=== PATIENT | male | born 1940 | race Caucasian/White ===

== ENCOUNTER 2021-03-28 15:13 | Outpatient (CLI) | payer MEDICARE | END 2021-03-28 15:14 | disposition home or self-care (01) | LOC: BICCT 15:13 | PROVIDERS: ATTEND Student in an Organized Health Care Education/Training Program | DX: B49 Unspecified mycosis (principal); H70.92 Unspecified mastoiditis, left ear; H74.8X3 Other specified disorders of middle ear and mastoid, bilateral; H61.93 Disorder of external ear, unspecified, bilateral | CPT/HCPCS: 70480 ==

== ENCOUNTER 2021-09-02 15:37 | Outpatient (CLI) | payer MEDICARE ==
[~2021-09-02 15:37] MED LIST: Magnevist 469MG/ML 20 ML VIAL ONE
== END 2021-09-02 15:38 | disposition home or self-care (01) ==
LOC: BICMRI 15:37
PROVIDERS: ATTEND Otolaryngology
DX: H60.313 Diffuse otitis externa, bilateral (principal); H66.12 Chronic tubotympanic suppurative otitis media, left ear; R42 Dizziness and giddiness; Q16.5 Congenital malformation of inner ear; I67.82 Cerebral ischemia; H74.8X3 Other specified disorders of middle ear and mastoid, bilateral; H70.90 Unspecified mastoiditis, unspecified ear; H66.90 Otitis media, unspecified, unspecified ear
CPT/HCPCS: 70553; 82565; A9579

== ENCOUNTER 2023-07-08 15:26 | Inpatient (IN) | payer MEDICARE ==
[~2023-07-08 15:26] MED LIST changes: +Iopamidol-370 76% 500 ML MDV (1 ML CHARGE) ONE; -Magnevist 469MG/ML 20 ML VIAL ONE
[2023-07-08] MEDS ORDERED: Metoprolol Tartrate 5 MG/5 ML VIAL ONE (15:54)
[2023-07-08 16:16] LABS: #Eosinphils 0.1 thou/uL (0.0-0.7); #Monocytes 0.5 thou/uL (0.11-0.59); %Basophils 0.4 % (0.0-1.0); %Eosinophils 1.8 % (0.0-10.0); %Lymphocytes 26.2 % (21.0-51.0); %Monocytes 5.9 % (0.0-10.0); %Neutrophils 65.4 % (42.0-75.0); Hematocrit 38.2 % (42.0-52.0); Hemoglobin 12.6 g/dL (14.0-18.0); Mean Corpuscular Hemoglobin 31.2 pg (27.0-31.0); Mean Corpuscular Volume 94.6 fl (78.0-98.0); Mean Platelet Volume 11.5 fL (7.4-10.4); Platelet Count 173 10x3/uL (130-400); RBC Distribution Width 12.7 % (11.5-14.5); Red Blood Cell (RBC) Count 4.04 mill/uL (4.70-6.10); White Blood Cell (WBC) Count 7.6 10x3/uL (4.8-10.8)
[2023-07-08 16:52] LABS: Troponin I Less than 0.010 ng/mL (< 0.028)
[2023-07-08 17:47] LABS: ALT (SGPT) 25 U/L (8-55); AST (SGOT) 17 U/L (5-34); Albumin 3.9 g/dL (3.4-4.8); Alkaline Phosphatase 84 U/L (40-110); Anion Gap 10 mmol/L (10-20); BUN (Urea Nitrogen) 35 mg/dL (8.4-25.7); Bilirubin, Total 0.4 mg/dL (0.2-1.2); Calc. Creatinine Clearance 0 mL/min (70-130); Calcium 9.4 mg/dL (7.8-10.44); Carbon Dioxide 27 mmol/L (23-31); Chloride 106 mmol/L (98-107); Estimated GFR 37; Glucose 290 mg/dL (83-110); Potassium 4.3 mmol/L (3.5-5.1); Protein, Total 6.9 g/dL (5.8-8.1); Sodium 139 mmol/L (136-145)
[2023-07-08 18:01] LABS: Magnesium 1.8 mg/dL (1.6-2.6)
[2023-07-08] MEDS ORDERED: Ondansetron PF 4 MG/2 ML Vial IVP PRN (18:23)
[2023-07-08] MEDS ORDERED: Ondansetron ODT 4 MG TAB PO PRN (18:23)
[2023-07-08] MEDS ORDERED: Acetaminophen 325 MG TAB PO PRN (18:23)
[2023-07-08] MEDS ORDERED: HumaLOG 300 UNITS/3 ML VIAL SC PRN ×2 (18:25)
[2023-07-08] MEDS ORDERED: Dextrose 5% in Water 1,000 ML IV PRN (18:25)
[2023-07-08] MEDS ORDERED: Glucagon 1 MG/ML KIT IM PRN (18:25)
[2023-07-08] MEDS ORDERED: Dextrose 50% Abboject 50 ML SYRINGE SLOW IVP PRN (18:25)
[2023-07-08] MEDS ORDERED: Magnesium 2 GM/50 ML(in water) 2 GM in Premix Bag 1 BAG IVPB SCH (19:00)
[2023-07-08 19:12] LABS: Bacteria/HPF None Seen HPF (None Seen); Bilirubin Negative (Negative); Blood, Urine Negative (Negative); CAUTI Indications for Culture Alt mental st,lethar; Clarity Clear (Clear); Glucose, Urine (Dipstick) Normal (Negative); Ketone, Urine Negative (Negative); Leukocyte Negative Leu/uL (Negative); Nitrite Negative (Negative); Protein, Urine (Dipstick) Negative (Neg-Trace); RBC/HPF 0-3 HPF (0-3); Squamous Epithelial 0-3 HPF (0-3); Urobilinogen Normal mg/dL (Less than 2); WBC/HPF 0-3 HPF (0-3)
[2023-07-08 19:13] LABS: Urine Culture Reflex No No
[2023-07-08] MEDS: Sodium Chloride 0.9% 1,000 ML IV SCH (20:42)
[2023-07-08 20:54] VITALS: BMI 28.9
[2023-07-08] MEDS ORDERED: Aspirin 325 mg Enteric Coated Tablet PO SCH (21:45)
[2023-07-08] MEDS ORDERED: Dulaglutide [Trulicity] 1.5 MG/0.5 ML Pen.Inj SC SCH (21:45)
[2023-07-09 01:26] LABS: Troponin I Less than 0.010 ng/mL (< 0.028)
[2023-07-09 04:29] LABS: #Eosinphils 0.1 thou/uL (0.0-0.7); #Monocytes 0.6 thou/uL (0.11-0.59); #Neutrophils 5.5 thou/uL (1.40-6.50); %Basophils 0.4 % (0.0-1.0); %Eosinophils 1.7 % (0.0-10.0); %Lymphocytes 22.6 % (21.0-51.0); %Neutrophils 67.8 % (42.0-75.0); Hematocrit 35.9 % (42.0-52.0); Hemoglobin 11.6 g/dL (14.0-18.0); Mean Corpuscular HGB CONC 32.3 g/dL (32.0-36.0); Mean Corpuscular Hemoglobin 31.2 pg (27.0-31.0); Mean Corpuscular Volume 96.5 fl (78.0-98.0); Mean Platelet Volume 10.9 fL (7.4-10.4); Platelet Count 157 10x3/uL (130-400); RBC Distribution Width 12.7 % (11.5-14.5); Red Blood Cell (RBC) Count 3.72 mill/uL (4.70-6.10); White Blood Cell (WBC) Count 8.2 10x3/uL (4.8-10.8)
[2023-07-09 04:57] LABS: Troponin I Less than 0.010 ng/mL (< 0.028)
[2023-07-09 04:59] LABS: Anion Gap 11 mmol/L (10-20); BUN (Urea Nitrogen) 31 mg/dL (8.4-25.7); Calc. Creatinine Clearance 79 mL/min (70-130); Calcium 8.8 mg/dL (7.8-10.44); Carbon Dioxide 23 mmol/L (23-31); Chloride 110 mmol/L (98-107); Estimated GFR 65; Glucose 111 mg/dL (83-110); Potassium 4.3 mmol/L (3.5-5.1); Sodium 140 mmol/L (136-145)
[2023-07-09] MEDS: Levothyroxine 150 MCG TAB PO SCH (06:48)
[2023-07-09] MEDS ORDERED: Aspirin 325 mg Enteric Coated Tablet PO SCH (09:00)
[2023-07-09] MEDS: Sodium Chloride 0.9% 1,000 ML IV SCH ×2 (17:50→21:51)
[2023-07-09] MEDS ORDERED: Atorvastatin Calcium 20 MG TAB PO SCH (21:00)
[2023-07-10] MEDS: Levothyroxine 150 MCG TAB PO SCH (05:25)
[2023-07-10 05:44] LABS: Anion Gap 8 mmol/L (10-20); BUN (Urea Nitrogen) 23 mg/dL (8.4-25.7); Calc. Creatinine Clearance 84 mL/min (70-130); Calcium 8.7 mg/dL (7.8-10.44); Carbon Dioxide 24 mmol/L (23-31); Chloride 111 mmol/L (98-107); Estimated GFR 71; Glucose 99 mg/dL (83-110); Potassium 4.2 mmol/L (3.5-5.1); Sodium 139 mmol/L (136-145)
[2023-07-10] MEDS: Sodium Chloride 0.9% 1,000 ML IV SCH (06:06)
[2023-07-10 07:44] VITALS: BP 136/75; TEMP 97.7
[2023-07-10] MEDS ORDERED: dilTIAZem CD 120 MG CAP PO SCH (09:00)
[2023-07-10] MEDS ORDERED: Regadenoson 0.4 MG/5 ML SYRINGE ONE (09:32)
[2023-07-10] MEDS ORDERED: Pioglitazone HCl 45 MG TAB PO SCH (17:00)
== END 2023-07-10 15:54 | disposition home or self-care (01) | DRG 309 ==
LOC: ERS 15:26 → 2NO 18:08 → OBSVTOIN 07-09 16:59
PROVIDERS: ADMIT Hospitalist; ATTEND Family Medicine
PROC: C23GYZZ Positron Emission Tomographic (PET) Imaging of Myocardium using Other Radionuclide (ICD-10-PCS; principal; 2023-07-10)
DX: I47.1 Supraventricular tachycardia (principal); N17.9 Acute kidney failure, unspecified; Z79.899 Other long term (current) drug therapy; I12.9 Hypertensive chronic kidney disease with stage 1 through stage 4 chronic kidney disease, or unspecified chronic kidney disease; N18.30 Chronic kidney disease, stage 3 unspecified; E03.9 Hypothyroidism, unspecified; I25.10 Atherosclerotic heart disease of native coronary artery without angina pectoris; E11.22 Type 2 diabetes mellitus with diabetic chronic kidney disease; E78.2 Mixed hyperlipidemia; I95.1 Orthostatic hypotension; Z95.1 Presence of aortocoronary bypass graft; Z98.890 Other specified postprocedural states; Z98.49 Cataract extraction status, unspecified eye; Z87.891 Personal history of nicotine dependence; Z79.82 Long term (current) use of aspirin
CPT/HCPCS: 36415; 36416; 71045; 71275; 78452; 80048; 80053; 81001; 83605; 83735; 83880; 84439; 84443; 84484; 85025; 85379; 87040; 87086; 93005; 93017; 93306; 96360; 96374; 96375; A9500; G0378; J2785; J3475; J7050; Q9967

== ENCOUNTER 2025-06-07 12:39 | Outpatient (CLI) | payer MEDICARE | END 2025-06-07 12:40 | disposition home or self-care (01) | LOC: BICRAD 12:39 | PROVIDERS: ATTEND Internal Medicine Cardiovascular Disease | DX: R06.02 Shortness of breath (principal) | CPT/HCPCS: 36415; 71046; 83880; 85379 ==

== ENCOUNTER 2025-08-16 10:28 | Outpatient (CLI) | payer MEDICARE | END 2025-08-16 10:29 | disposition home or self-care (01) | LOC: BICCT 10:28 | PROVIDERS: ATTEND Internal Medicine Cardiovascular Disease | DX: R06.02 Shortness of breath (principal); R91.1 Solitary pulmonary nodule; J47.9 Bronchiectasis, uncomplicated; I25.10 Atherosclerotic heart disease of native coronary artery without angina pectoris | CPT/HCPCS: 71250 ==